=== PATIENT | male | born 2000 | race Caucasian/White ===

== ENCOUNTER → 2019-12-18 | Outpatient (CLI) | payer BC ==
--- NOTE | 2019-12-18 08:35 | US ---
EXAMINATION TYPE: US abdomen complete DATE OF EXAM: 12/18/2019 COMPARISON: NONE CLINICAL HISTORY: R10.9 Abdominal pain, unspecified. Abdomen pain and occasional nausea after eating x 2 months EXAM MEASUREMENTS: Liver Length: 16.4 cm Gallbladder Wall: 0.1 cm CBD: 0.4 cm Spleen: 13.2 cm Right Kidney: 10.1 x 5.3 x 5.6 cm Left Kidney: 10.7 x 6.1 x 5.2 cm Pancreas: wnl Liver: wnl Gallbladder: wnl Evidence for sonographic Lakhani's sign: no CBD: wnl Spleen: visualized portions wnl, limited by overlying bowel gas Right Kidney: wnl Left Kidney: wnl Upper IVC: wnl Abd Aorta: visualized portions wnl, mid portion obscured by overlying midline bowel gas IMPRESSION: 1. Normal abdomen ultrasound as visualized
== END | disposition home or self-care (01) ==
LOC: RADUSWWP 07:18
PROVIDERS: ATTEND Nurse Practitioner Family
DX: R10.9 Unspecified abdominal pain (principal)
CPT/HCPCS: 76700

== ENCOUNTER 2022-07-13 15:02 | Emergency (ER) | payer BC, OTHER ==
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
[2022-07-13] MEDS ORDERED: IBUPROFEN 600 MG STARTER PACK 4 TAB BTL PO STA (19:04)
[2022-07-13] MEDS ORDERED: traMADol 50 MG STARTER PACK 3 TAB BTL PO STA (19:04)
[2022-07-13 20:01] VITALS: BP 112/68; PULSE 68; RESP 14; TEMP 98.4
== END 2022-07-13 20:01 | disposition home or self-care (01) ==
LOC: EC 15:02
DX: T24.231A Burn of second degree of right lower leg, initial encounter (principal); T31.0 Burns involving less than 10% of body surface; X13.1XXA Other contact with steam and other hot vapors, initial encounter
CPT/HCPCS: 16020; 99283

== ENCOUNTER 2022-11-23 20:37 | Emergency (ER) | payer BC, OTHER ==
--- NOTE | 2022-11-23 21:47 | ED ---
General Adult HPI - General Stated complaint: Left Knee pain Time Seen by Provider: 11/23/22 21:46 Source: RN notes reviewed - History of Present Illness Initial comments: 22 year old male presents to the emergency department with a chief complaint of left knee pain. Patient was walking down the stairs carrying a dresser when he lost his footing. Admits to pain with extension. He has not taken anything prior to arrival. Denies weakness, numbness, tingling in extremity. Denies hitting his head, loss of consciousness. Denies previous injury - Related Data Previous Rx's Medication Instructions Recorded Ibuprofen [Motrin] 800 mg PO Q8HR PRN #30 tab 11/23/22 Allergies Allergy/AdvReac Type Severity Reaction Status Date / Time No Known Allergies Allergy Verified 11/23/22 21:46 Review of Systems ROS Statement: Those systems with pertinent positive or pertinent negative responses have been documented in the HPI. ROS Other: All systems not noted in ROS Statement are negative. Past Medical History Past Medical History: No Reported History History of Any Multi-Drug Resistant Organisms: None Reported Past Surgical History: No Surgical Hx Reported Past Psychological History: No Psychological Hx Reported Smoking Status: Never smoker Past Alcohol Use History: None Reported Past Drug Use History: None Reported General Exam - General Exam Comments Initial Comments: Visual Physical Exam Vital signs reviewed General: Well-appearing, nontoxic, no acute distress. Head: Normocephalic, atraumatic Eyes: PERRLA, EOMI ENT: Airway patent Chest: Nonlabored breathing Skin: No visual rash, normal skin tone Neuro: Alert and oriented 3 Musculoskeletal: No gross abnormalities I performed the quick note portion of this exam, verbal signature Casandra Cooper PA-C General: Alert, in no acute distress Head: atraumatic normocephalic. Eyes PERRL, EOMI intact, mucous membranes moist Respiratory: Lungs clear to auscultation bilaterally Cardiovascular: Heart rate regular rate and rhythm Abdominal: Soft without guarding or rebound Extremities: Normal inspection with full range of motion and normal capillary refill, left knee with mild edema. Limited range of motion secondary to pain. No valgas, anna laxity. 2+ DT/PT pulses. Distal neurovascular intact Neuroogic: alert and oriented 3, CN II-XII intact, able to ambulate with steady gait Skin: warm dry and intact with normal color Course Vital Signs 11/23/22 11/23/22 21:46 23:45 Temperature 98.1 F Pulse Rate 68 68 Respiratory 18 18 Rate Blood Pressure 120/75 127/91 O2 Sat by Pulse 98 100 Oximetry Medical Decision Making - Medical Decision Making Was pt. sent in by a medical professional or institution (AUDI Blankenship, ELECTROMECHANICAL ASSEMBLY TECHNICIAN, urgent care, hospital, or [facility]...) When possible be specific @ -[No] Did you speak to anyone other than the patient for history (EMS, parent, family, police, friend...)? What history was obtained from this source @ -[No] Did you review nursing and triage notes (agree or disagree)? Why? @ -[I reviewed and agree with nursing and triage notes] Were old charts reviewed (outside hosp., previous admission, EMS record, old EKG, old radiological studies, urgent care reports/EKG's, [facility] records)? Report findings @ -[No old charts were reviewed] Differential Diagnosis (chest pain, altered mental status, abdominal pain women, abdominal pain men, vaginal bleeding, weakness, fever, dyspnea, syncope, headache, dizziness, GI bleed, back pain, seizure, CVA, palpatations, mental health, musculoskeletal)? @ -[not applicable] EKG interpreted by me (3pts min.). @ -[As above] X-rays interpreted by me (1pt min.). @ -Left knee x-ray without any evidence of any fracture or dislocation CT interpreted by me (1pt min.). @ -[None done] U/S interpreted by me (1pt. min.). @ -[None done] What testing was considered but not performed or refused? (CT, X-rays, U/S, labs)? Why? @ -[None] What meds were considered but not given or refused? Why? @ -[None] Did you discuss the management of the patient with other professionals (professionals i.e. AUDI Blankenship, ELECTROMECHANICAL ASSEMBLY TECHNICIAN, lab, RT, psych nurse, medical social worker, environmental educator, teacher, state patrol officer, egg caser)? Give summary @ -[No] Was smoking cessation discussed for >3mins.? @ -[No] Was critical care preformed (if so, how long)? @ -[No] Were there social determinants of health that impacted care today? How? (Homelessness, low income, unemployed, alcoholism, drug addiction, transportation, low edu. Level, literacy, decrease access to med. care, residential, rehab)? @ -[No] Was there de-escalation of care discussed even if they declined (Discuss DNR or withdrawal of care, Hospice)? DNR status @ -[No] What co-morbidities impacted this encounter? (DM, HTN, Smoking, COPD, CAD, Cancer, CVA, ARF, Chemo, Hep., AIDS, mental health diagnosis, sleep apnea, morbid obesity)? @ -[None] Was patient admitted / discharged? Hospital course, mention meds given and route, prescriptions, significant lab abnormalities, going to OR and other pertinent info. @ Discharged. This is a pleasant 22-year-old male who presents the emergency department with left knee pain. Patient had a thorough history and physical exam performed while in the ED. Physical exam reveals mild denies edema to the left knee. Limited range of motion secondary to pain. Distally neurovascularly intact. Patient had x-rays which were negative. He was offered Motrin. Patient placed in knee immobilizer and provided crutches however he declined at the time of evaluation. Referred precautions were discussed at length. Patient discharged in stable condition with recommended close follow-up with orthopedic and PCP in 1-2 days. Case discussed with HAILEE Palmer who agrees with plan of care. Undiagnosed new problem with uncertain prognosis? @ -[No] Drug Therapy requiring intensive monitoring for toxicity (Heparin, Nitro, Insulin, Cardizem)? @ -[No] Were any procedures done? @ -[No] Diagnosis/symptom? @ -Internal Derangement of Left Knee Acute, or Chronic, or Acute on Chronic? @ -Acute Uncomplicated (without systemic symptoms) or Complicated (systemic symptoms)? @ -Uncomplicated Side effects of treatment? @ -[No] Exacerbation, Progression, or Severe Exacerbation? @ -[No] Poses a threat to life or bodily function? How? (Chest pain, [place], [place], pneumonia, PE, COPD, DKA, ARF, appy, cholecystitis, CVA, Diverticulitis, Homicidal, Suicidal, threat to staff... and all critical care pts) @ -Low likelihood Disposition Clinical Impression: Internal derangement of left knee Disposition: HOME SELF-CARE Condition: Stable Instructions (If sedation given, give patient instructions): Knee Sprain (ED), Knee Pain (ED) Additional Instructions: Please use crutches and knee immobilizer Please take Tylenol Motrin for pain Elevate extremity when able Please return to the nearest emergency department symptoms worsen or persist Prescriptions: Ibuprofen [Motrin] 800 mg PO Q8HR PRN #30 tab PRN Reason: Pain Is patient prescribed a controlled substance at d/c from ED?: No Referrals: None,Stated [REFERRING] - 1-2 days Chuckie Monreal DO [Doctor of Osteopathic Medicine] - 1-2 days Time of Disposition: 23:08
[2022-11-23 21:48] VITALS: PULSE 68; RESP 18; TEMP 98.1
--- NOTE | 2022-11-23 22:03 | XR ---
EXAMINATION TYPE: XR knee complete LT DATE OF EXAM: 11/23/2022 COMPARISON: None HISTORY: Left knee pain TECHNIQUE: 3 view left knee FINDINGS: No acute fracture or dislocation is evident. No joint effusion is evident. Joint spaces are preserved. Follow up exams can be performed 7-10 days from acute trauma for continued pain. IMPRESSION: 1. Acute osseous abnormality left knee
[2022-11-23] MEDS ORDERED: IBUPROFEN 800 MG TAB PO STA (23:05)
[2022-11-23 23:50] VITALS: BP 127/91
== END 2022-11-23 23:50 | disposition home or self-care (01) ==
LOC: EC 20:37
DX: M23.92 Unspecified internal derangement of left knee (principal)
CPT/HCPCS: 73562; 99283; L1830